=== PATIENT | female | born 1975 | race Caucasian/White ===

== ENCOUNTER 2018-01-17 14:32 | Emergency (ER) | payer MEDICAID ==
[~2018-01-17] VITALS: Ht 157.5 cm; Wt 68.2 kg
[~2018-01-17 14:32] MED LIST: CLIN300C85 PO; CRAN450T9 PO; LEVA15HF4 IH; NAPR-56 PO; ONDA8TAB6 PO; PHEN-873 PO; PRED20TA PO; TRAM50TA2 PO; ZOF4T PO
[2018-01-17 14:50] VITALS: BP 124/88
== END 2018-01-17 16:39 | disposition home or self-care (01) ==
LOC: ER 14:32
DX: L23.7 Allergic contact dermatitis due to plants, except food (principal); J45.909 Unspecified asthma, uncomplicated; G89.29 Other chronic pain; Z88.2 Allergy status to sulfonamides; Z79.899 Other long term (current) drug therapy
CPT/HCPCS: 93005; 99283; L0172

== ENCOUNTER 2020-03-13 15:47 | Emergency (ER) | payer MEDICAID ==
[~2020-03-13] VITALS: Ht 157.5 cm; Wt 70.0 kg
[~2020-03-13 15:47] MED LIST changes: +CLIN-97 PO; -CLIN300C85 PO; +PHEN-786 PO; -PHEN-873 PO
[2020-03-13] MEDS ORDERED: PSEU120T55 PO (17:15)
[2020-03-13] MEDS ORDERED: FLUT16SP2 BOTHNARES (17:15)
[2020-03-13 17:21] VITALS: BP 117/76
== END 2020-03-13 17:22 | disposition home or self-care (01) ==
LOC: ER 15:48
DX: R51 Headache (principal); R20.2 Paresthesia of skin; J45.909 Unspecified asthma, uncomplicated; G89.29 Other chronic pain; Z87.442 Personal history of urinary calculi; F17.200 Nicotine dependence, unspecified, uncomplicated; Z72.89 Other problems related to lifestyle; Z88.2 Allergy status to sulfonamides; Z79.899 Other long term (current) drug therapy
CPT/HCPCS: 99283